=== PATIENT | male | born 1975 | race Caucasian/White ===

== ENCOUNTER → 2018-08-10 09:08 | Outpatient (CLI) | payer MEDICARE, MEDICAID, SELFPAY ==
[2018-08-10 09:59] LABS: Alanine Aminotransferase 33 IU/L (21-72); Albumin 4.6 g/dL (3.5-5.0); Albumin Globulin Ratio 1.7 (1.0-2.8); Alkaline Phosphatase 78 U/L (38-126); Aspartate Aminotransferase 22 IU/L (17-59); BUN Creatinine Ratio 16.3 (6-22); Bilirubin Total 0.6 mg/dL (0.2-1.3); Blood Urea Nitrogen 13 mg/dL (9-20); Calcium 9.6 mg/dL (8.4-10.2); Carbon Dioxide 33 mmol/L (22-32); Chloride 97 mmol/L (98-107); Estimated Glomerular Filt Rate > 60.0 mL/min (>60); Globulin 2.7 g/dL (1.7-4.1); Glucose 138 mg/dL (70-100); HEMOLYSIS < 15 (0-50); Potassium 4.5 mmol/L (3.4-5.1); Sodium 141 mmol/L (137-145); Total Protein 7.3 g/dL (6.3-8.2)
== END ==
PROVIDERS: PCP Internal Medicine; Visit Provider Internal Medicine
DX: E11.9 Type 2 diabetes mellitus without complications (principal); E78.00 Pure hypercholesterolemia, unspecified; R74.0 Nonspecific elevation of levels of transaminase and lactic acid dehydrogenase [LDH]
CPT/HCPCS: 36415; 80053; 83036

== ENCOUNTER → 2020-04-14 16:12 | Outpatient (CLI) | payer MEDICARE, MEDICAID, SELFPAY ==
[2020-04-14 17:41] LABS: Hemoglobin A1C% w Est Avg Glu 7.5 % (4.0-6.0)
== END ==
PROVIDERS: Family Provider Internal Medicine; PCP Internal Medicine; Referring Provider Internal Medicine; Visit Provider Internal Medicine
DX: E11.9 Type 2 diabetes mellitus without complications (principal)
CPT/HCPCS: 36415; 83036

== ENCOUNTER → 2020-11-17 14:41 | Outpatient (ROUT) | payer MEDICARE, MEDICAID, SELFPAY ==
[2020-11-17 15:31] LABS: Hemoglobin A1C% w Est Avg Glu 6.9 % (4.0-6.0)
== END ==
PROVIDERS: Family Provider Internal Medicine; PCP Internal Medicine; Visit Provider Internal Medicine
DX: E11.9 Type 2 diabetes mellitus without complications (principal)
CPT/HCPCS: 83036

== ENCOUNTER → 2022-01-17 11:58 | Outpatient (CLI) | payer MEDICARE, MEDICAID, SELFPAY ==
[2022-01-17 19:11] LABS: Add Manual Diff / Slide Review NO; Basophils Absolute Auto 0 /uL (0-100); Basophils Percent Auto 0.5 % (0-2); Eosinophils Absolute Auto 0 /uL (0-450); Eosinophils Percent Auto 0.4 % (2-4); Hematocrit 43.2 % (41-53); Hemoglobin 14.6 g/dL (13.5-17.5); Lymphocytes Absolute Auto 1100 /uL (1100-4500); Lymphocytes Percent Auto 21.7 % (25-40); Mean Corpuscular HGB Conc 33.7 % (30-36); Mean Corpuscular Hemoglobin 31.7 PG (26-34); Mean Corpuscular Volume 94.2 fL (80-100); Monocytes Absolute Auto 600 /uL (0-900); Monocytes Percent Auto 11.2 % (3-14); Neutrophils Absolute Auto 3300 /uL (1500-7000); Neutrophils Percent Auto 66.2 % (50-75); Platelet Count 233 X10^3/uL (150-400); Red Blood Cell Count 4.59 X10^6/uL (4.5-5.9); Red Cell Distribution Width 13.3 % (11.6-14.8)
[2022-01-17 19:37] LABS: Hemoglobin A1C% w Est Avg Glu 8.1 % (4.0-6.0)
[2022-01-17 19:38] LABS: Alanine Aminotransferase 38 IU/L (<50); Albumin 4.2 g/dL (3.5-5.0); Albumin Globulin Ratio 1.8 (1.0-2.8); Alkaline Phosphatase 124 U/L (38-126); Aspartate Aminotransferase 31 IU/L (17-59); BUN Creatinine Ratio 21.4 (6-22); Bilirubin Total 0.5 mg/dL (0.2-1.3); Blood Urea Nitrogen 15 mg/dL (9-20); Calcium 9.8 mg/dL (8.4-10.2); Carbon Dioxide 33 mmol/L (22-32); Chloride 97 mmol/L (98-107); Cholesterol 173 mg/dL (140-199); Estimated Glomerular Filt Rate > 60.0 mL/min (>60); Globulin 2.4 g/dL (1.7-4.1); Glucose 296 mg/dL (70-100); HDL Cholesterol 45 mg/dL (40-60); HEMOLYSIS 17 (0-50); LDL Cholesterol Calculated 93 mg/dL (<100); Potassium 4.5 mmol/L (3.4-5.1); Sodium 134 mmol/L (137-145); Total Protein 6.6 g/dL (6.3-8.2); Triglycerides 177 mg/dL (35-150)
== END ==
PROVIDERS: Family Provider Internal Medicine; PCP Family Medicine; Visit Provider Family Medicine
DX: E11.9 Type 2 diabetes mellitus without complications (principal)
CPT/HCPCS: 80053; 80061; 83036; 85025

== ENCOUNTER → 2022-05-25 11:39 | Outpatient (CLI) | payer MEDICARE, MEDICAID, SELFPAY ==
[2022-05-25 20:24] LABS: Add Manual Diff / Slide Review NO; Basophils Absolute Auto 0 /uL (0-100); Basophils Percent Auto 0.6 % (0-2); Eosinophils Absolute Auto 0 /uL (0-450); Eosinophils Percent Auto 0.4 % (2-4); Hematocrit 45.4 % (41-53); Hemoglobin 15.4 g/dL (13.5-17.5); Lymphocytes Absolute Auto 1000 /uL (1100-4500); Mean Corpuscular HGB Conc 33.9 % (30-36); Mean Corpuscular Hemoglobin 32.1 PG (26-34); Mean Corpuscular Volume 94.6 fL (80-100); Monocytes Absolute Auto 500 /uL (0-900); Monocytes Percent Auto 9.9 % (3-14); Neutrophils Absolute Auto 3300 /uL (1500-7000); Neutrophils Percent Auto 68.1 % (50-75); Platelet Count 205 X10^3/uL (150-400); Red Blood Cell Count 4.79 X10^6/uL (4.5-5.9); Red Cell Distribution Width 12.8 % (11.6-14.8); White Blood Cell Count 4.8 X10^3/uL (4.5-11.0)
[2022-05-25 20:28] LABS: Hemoglobin A1C% w Est Avg Glu 8.1 % (4.0-6.0)
[2022-05-25 20:35] LABS: Alanine Aminotransferase 44 IU/L (<50); Albumin 4.4 g/dL (3.5-5.0); Albumin Globulin Ratio 1.8 (1.0-2.8); Alkaline Phosphatase 103 U/L (38-126); Aspartate Aminotransferase 34 IU/L (17-59); BUN Creatinine Ratio 14.5 (6-22); Bilirubin Total 0.9 mg/dL (0.2-1.3); Blood Urea Nitrogen 10 mg/dL (9-20); Calcium 9.3 mg/dL (8.4-10.2); Carbon Dioxide 29 mmol/L (22-32); Chloride 97 mmol/L (98-107); Cholesterol 165 mg/dL (140-199); Estimated Glomerular Filt Rate > 60 mL/min (>60); Globulin 2.5 g/dL (1.7-4.1); Glucose 139 mg/dL (70-100); HDL Cholesterol 51 mg/dL (40-60); HEMOLYSIS < 15 (0-50); LDL Cholesterol Calculated 101 mg/dL (<100); Sodium 135 mmol/L (137-145); Total Protein 6.9 g/dL (6.3-8.2); Triglycerides 65 mg/dL (35-150)
== END ==
PROVIDERS: Family Provider Internal Medicine; PCP Family Medicine; Visit Provider Family Medicine
DX: E11.9 Type 2 diabetes mellitus without complications (principal); E78.5 Hyperlipidemia, unspecified; F20.9 Schizophrenia, unspecified
CPT/HCPCS: 80053; 80061; 83036; 85025

== ENCOUNTER → 2022-10-06 12:42 | Outpatient (CLI) | payer MEDICARE, MEDICAID, SELFPAY ==
[2022-10-06 19:15] LABS: Hemoglobin A1C% w Est Avg Glu 8.8 % (4.0-6.0)
== END ==
PROVIDERS: Family Provider Internal Medicine; PCP Family Medicine; Visit Provider Family Medicine
DX: E11.9 Type 2 diabetes mellitus without complications (principal)
CPT/HCPCS: 83036

== ENCOUNTER → 2022-12-29 11:48 | Outpatient (CLI) | payer MEDICARE, MEDICAID, SELFPAY ==
[2022-12-29 20:15] LABS: Hemoglobin A1C% w Est Avg Glu 8.8 % (4.0-6.0)
[2022-12-29 20:17] LABS: BUN Creatinine Ratio 25.8 (6-22); Blood Urea Nitrogen 16 mg/dL (9-20); Calcium 9.4 mg/dL (8.4-10.2); Carbon Dioxide 26 mmol/L (22-32); Chloride 94 mmol/L (98-107); Cholesterol 170 mg/dL (140-199); Estimated Glomerular Filt Rate > 60 mL/min (>60); Glucose 141 mg/dL (70-100); HDL Cholesterol 51 mg/dL (40-60); HEMOLYSIS < 15 (0-50); LDL Cholesterol Calculated 95 mg/dL (<100); Sodium 135 mmol/L (137-145); Triglycerides 119 mg/dL (35-150)
[2022-12-29 21:01] LABS: Microalbumin Urine Random < 0.6 mg/dL (0-1.6); Vitamin B12 > 1000 pg/mL (239-931)
[2022-12-29 21:02] LABS: Creatinine Urine Random 8.1 mg/dL
== END ==
PROVIDERS: Family Provider Internal Medicine; PCP Family Medicine; Visit Provider Family Medicine
DX: E11.9 Type 2 diabetes mellitus without complications (principal); E78.5 Hyperlipidemia, unspecified; F20.9 Schizophrenia, unspecified; M06.9 Rheumatoid arthritis, unspecified
CPT/HCPCS: 80048; 80061; 82043; 82570; 82607; 83036

== ENCOUNTER → 2023-05-02 08:58 | Outpatient (CLI) | payer MEDICARE, MEDICAID, SELFPAY ==
[2023-05-02 20:09] LABS: BUN Creatinine Ratio 17.9 (6-22); Blood Urea Nitrogen 12 mg/dL (9-20); Calcium 9.2 mg/dL (8.4-10.2); Carbon Dioxide 31 mmol/L (22-32); Chloride 92 mmol/L (98-107); Cholesterol 156 mg/dL (140-199); Estimated Glomerular Filt Rate > 60 mL/min (>60); Glucose 184 mg/dL (70-100); HDL Cholesterol 56 mg/dL (40-60); HEMOLYSIS 18 (0-50); LDL Cholesterol Calculated 78 mg/dL (<100); Potassium 3.8 mmol/L (3.4-5.1); Sodium 131 mmol/L (137-145); Triglycerides 110 mg/dL (35-150)
[2023-05-04 00:07] LABS: x Labcorp Estim. Avg Glu (eAG) 206 mg/dL (.); x Labcorp Hemoglobin A1c 8.8 % (4.8-5.6)
== END ==
PROVIDERS: Family Provider Internal Medicine; PCP Family Medicine; Visit Provider Family Medicine
DX: E78.5 Hyperlipidemia, unspecified; E11.9 Type 2 diabetes mellitus without complications; E87.1 Hypo-osmolality and hyponatremia; G62.9 Polyneuropathy, unspecified; F20.9 Schizophrenia, unspecified
CPT/HCPCS: 80048; 80061; 83036

== ENCOUNTER → 2023-08-17 13:14 | Outpatient (CLI) | payer MEDICARE, MEDICAID, SELFPAY ==
[2023-08-17 19:53] LABS: BUN Creatinine Ratio 14.1 (6-22); Blood Urea Nitrogen 10 mg/dL (9-20); Estimated Glomerular Filt Rate > 60 mL/min (>60)
[2023-08-17 19:54] LABS: Hemoglobin A1C% w Est Avg Glu 9.7 % (4.0-6.0)
== END ==
PROVIDERS: Family Provider Internal Medicine; PCP Family Medicine; Visit Provider Family Medicine
DX: E11.9 Type 2 diabetes mellitus without complications (principal); E87.1 Hypo-osmolality and hyponatremia; E78.5 Hyperlipidemia, unspecified
CPT/HCPCS: 82565; 83036; 84520

== ENCOUNTER → 2023-12-11 09:50 | Outpatient (CLI) | payer MEDICARE, MEDICAID, SELFPAY ==
[2023-12-11 19:38] LABS: Hemoglobin A1C% w Est Avg Glu 8.3 % (4.0-6.0)
[2023-12-11 19:46] LABS: BUN Creatinine Ratio 15.9 (6-22); Blood Urea Nitrogen 11 mg/dL (9-20); Calcium 9.6 mg/dL (8.4-10.2); Carbon Dioxide 33 mmol/L (22-32); Chloride 92 mmol/L (98-107); Estimated Glomerular Filt Rate > 60 mL/min (>60); Glucose 107 mg/dL (70-100); HEMOLYSIS 17 (0-50); Potassium 3.7 mmol/L (3.4-5.1); Sodium 133 mmol/L (137-145)
== END ==
PROVIDERS: Family Provider Internal Medicine; PCP Family Medicine; Visit Provider Family Medicine
DX: E11.9 Type 2 diabetes mellitus without complications (principal); E87.1 Hypo-osmolality and hyponatremia
CPT/HCPCS: 80048; 83036

== ENCOUNTER → 2024-04-08 08:51 | Outpatient (CLI) | payer MEDICARE, MEDICAID, SELFPAY ==
[2024-04-08 20:20] LABS: Add Manual Diff / Slide Review NO; Basophils Absolute Auto 100 /uL (0-100); Basophils Percent Auto 0.9 % (0-2); Eosinophils Absolute Auto 100 /uL (0-450); Eosinophils Percent Auto 1.9 % (2-4); Hematocrit 46.2 % (41-53); Hemoglobin 15.5 g/dL (13.5-17.5); Lymphocytes Absolute Auto 1300 /uL (1100-4500); Lymphocytes Percent Auto 23.1 % (25-40); Mean Corpuscular HGB Conc 33.6 % (30-36); Mean Corpuscular Hemoglobin 31.8 PG (26-34); Mean Corpuscular Volume 94.7 fL (80-100); Monocytes Absolute Auto 600 /uL (0-900); Monocytes Percent Auto 10.5 % (3-14); Neutrophils Absolute Auto 3600 /uL (1500-7000); Neutrophils Percent Auto 63.6 % (50-75); Platelet Count 214 X10^3/uL (150-400); Red Blood Cell Count 4.88 X10^6/uL (4.5-5.9); Red Cell Distribution Width 12.3 % (11.6-14.8); White Blood Cell Count 5.7 X10^3/uL (4.5-11.0)
[2024-04-08 20:21] LABS: Alanine Aminotransferase 70 IU/L (<50); Albumin Globulin Ratio 1.8 (1.0-2.8); Alkaline Phosphatase 106 U/L (38-126); Aspartate Aminotransferase 60 IU/L (17-59); BUN Creatinine Ratio 22.1 (6-22); Bilirubin Total 0.7 mg/dL (0.2-1.3); Blood Urea Nitrogen 15 mg/dL (9-20); Calcium 8.6 mg/dL (8.4-10.2); Carbon Dioxide 27 mmol/L (22-32); Chloride 101 mmol/L (98-107); Cholesterol 115 mg/dL (140-199); Estimated Glomerular Filt Rate > 60 mL/min (>60); Globulin 2.2 g/dL (1.7-4.1); Glucose 116 mg/dL (70-100); HDL Cholesterol 37 mg/dL (40-60); HEMOLYSIS 25 (0-50); LDL Cholesterol Calculated 56 mg/dL (<100); Potassium 3.5 mmol/L (3.4-5.1); Sodium 135 mmol/L (137-145); Total Protein 6.2 g/dL (6.3-8.2); Triglycerides 109 mg/dL (35-150)
[2024-04-08 20:53] LABS: Hemoglobin A1C% w Est Avg Glu 11.3 % (4.0-6.0)
[2024-04-08 20:56] LABS: Creatinine Urine Random 76.4 mg/dL
[2024-04-08 20:59] LABS: Microalbumin Urine Random < 0.6 mg/dL (0-1.6)
== END ==
PROVIDERS: Family Provider Internal Medicine; PCP Family Medicine; Visit Provider Family Medicine
DX: E11.9 Type 2 diabetes mellitus without complications (principal)
CPT/HCPCS: 80053; 80061; 82043; 82570; 83036; 85025

== ENCOUNTER → 2024-05-31 12:08 | Outpatient (CLI) | payer MEDICARE, MEDICAID, SELFPAY ==
--- NOTE | 2024-05-31 17:18 | DIAB.MNT ---
Initial Diabetes Medical Nutrition Therapy Assessment Name: Jermaine Palencia Date: 05/31/24 Time: 1-210p Dx: Type I Diabetes Provider: Trino Ramsay Learning Style: Reading/Seeing/Listening/Doing Jermaine presents for initial DM visit. Diagnosed in 2008. Just started insulin. Was on Metformin prior to that. Stomach never felt well on Metformin, often constipated, bloated. Does endorse h/o labs to confirm T1DM years ago, but did not need insulin at that time, MENA? If so, questioning need for Jardiance. States he will reach out to PCP office to ask. Took a group class in 2009 for DM. Follows a gluten free and close to vegan diet. Takes supplements. Does endorse taking iron and B vitamins. Has h/o elevated some type of B vitamin from sublingual vitamin, suspect B12. So does not take a sublingual, just B Complex vitamin. Reports blurry vision. I have coating on my eye from blood sugars. Denies cataracts. Sees eye doctor. Has DM retinopathy. Endorses infrequent neuropathy in LE. Does a sliding scale for Lantus HS instead of following FBG for changes, basis Lantus off of HS number. Follow SSI for Humalog. Endorses elevated BG after breakfast when FBG is in goal and no ac insulin is taken. Likely needs I:C ratio and correction. sometimes takes meal time insulin postprandial. Interested in CHO counting. He thinks he eats too much. States DM is very stressful. Anthropometrics: Ht: 5'10.5 Wt: 158# 04/2024 Physical Activity: Walk 2-3 x per day 3 mi. Walking, biking, basketball. Self-Monitoring Blood Glucose: No recent low BG per report. Does report a few 70 BG here and there. One time 66 mg/dl, technically low. States he did not feel shaky. Checks FB-100mg/dl Has checked after eating a few times, checks after work after snackin-230mg/dl. Thinks stress may be impacting BG. Most of stress is from trying to manage eating. Finds DM to be very stressful. Not sure how much he can eat. Brought FSL3 today, but cannot download theron without his home computer. So, we could not start his CGM today. Wants to use phone vs barrel reamer. Diabetes Medications: 25mg Jardiance 4 Glargine SSI Humalog Pertinent Labs: HgA1c: 9.7% 08/2023 8.3% 12/2023 11.3% 04/2024 Past Medical History: (Last Updated 04/18/24 @ 12:34 by Venkat Jameson MD) Carpal tunnel syndrome (~2014) Chicken pox (~1981) Schizophrenia (~2002) Nutrition Rx: Carbohydrates: Meal:30-60g Snack:15-30g Nutrition Diagnosis: - Food and nutrition related knowledge deficit r/t no previous MNT aeb needing education on carb counting and I:C - Inconsistent energy intake r/t work day skipping lunch aeb diet recall Intervention: This participant was very receptive. Provided appropriate educational handouts. Discussed the following topics: Completed intake assessment. Discussed barriers to care. Pathophysiology of T1DM in brief HgA1c, its correlation to blood glucose numbers, and rationale for goal Importance of self-monitoring, how often, and when to check. Suggested checking at different times to evaluate meals Plate Method, impact of macronutrients on blood sugar, meal timing, carbohydrate counting, carb counting resources Recommended servings for carbohydrates at meals and snacks I:C and correction for preventing hyperglycemia postprandially Rule of 15 for low tx CGM function, alerts, and theron download Created SMART goals for patient self-care and success. Goals: Use carb counting resources- new Trial 1:15 I:C with 1:50 correction- new Take insulin 15 min ac- new Follow-up: [facility] follow-up in 3 weeks. Would like face to face at this time, but plans to use virtual in the future. Abby Clayton RDN, [facility] Certified Diabetes Care and Entry Level Software Developer P: [phone] Thank you for this referral
== END ==
PROVIDERS: Family Provider Internal Medicine; PCP Family Medicine; Referring Provider Family Medicine
DX: E10.9 Type 1 diabetes mellitus without complications (principal); Z71.3 Dietary counseling and surveillance
CPT/HCPCS: 97802

== ENCOUNTER → 2024-06-21 12:39 | Outpatient (CLI) | payer MEDICARE, MEDICAID, SELFPAY ==
--- NOTE | 2024-08-07 17:07 | DIAB.FU ---
Follow-up Diabetes Education Assessment Name: Jermaine Palencia Date: 06/21/24 Time: 1-2p Dx: Type I Diabetes Provider: Trino Dean presents for DM visit. Diagnosed in 2008. Using FSL3 with success with good time in range. Has questions about placement of CGM. Repors soem lows around 6am of 54-69mg/dl without symptoms, true low vs compression low? Also endorses some elevations after breakfast. Paying out of pocket for SMBG strips. Trying to be more active to help manage BG. Reports h/o toe fungus and athletes foot. Has questions regarding supplements for reducing BG. Anthropometrics: Ht: 5'10.5 Wt: 158# 04/2024 Physical Activity: Walk 2-3 x per day 3 mi. Walking, biking, basketball. Self-Monitoring Blood Glucose: Overall very good time in range with >70% 70-180mg/dl. TIR: 1% very high 19% high 80% in range 0% low 0% very low av GMI: 6.9% variability: 25.9% Diabetes Medications: 25mg Jardiance 4u Glargine 4-5u Humalog Pertinent Labs: HgA1c: 9.7% 08/2023 8.3% 12/2023 11.3% 04/2024 Past Medical History: (Last Updated 04/18/24 @ 12:34 by Venkat Jameson MD) Carpal tunnel syndrome (~2014) Chicken pox (~1981) Schizophrenia (~2002) Intervention: This participant was very receptive. Provided appropriate educational handouts. Discussed the following topics: Placement of CGM and switching sites Double checking lows and education around true v compression lows at night Medication management: potential for adjusting insulin. SGLT2i indications. Checking feet and reducing DM complications Troubleshooting cost of SMBG products Created SMART goals for patient self-care and success. Goals: Use carb counting resources- met Trial 1:15 I:C with 1:50 correction- met Take insulin 15 min ac- met Switch arms for CGM- new Double check lows if no symptoms- new Try 5u at breakfast- new Check feet daily- new Check pharmacy for meter strips- new Follow-up: RDN [facility] follow-up in 3 months per pt request. Overall, BG seem well managed and Jermaine endorses confidence in managing insulin regimen at this time. RD will reach out about SGLT2i in T1 rx. Abby Clayton RDN, [facility] Certified Diabetes Care and Litigation Services Manager P: [phone] Thank you for this referral
== END ==
PROVIDERS: Family Provider Internal Medicine; PCP Family Medicine; Referring Provider Family Medicine
DX: E10.9 Type 1 diabetes mellitus without complications (principal); Z71.3 Dietary counseling and surveillance
CPT/HCPCS: G0108

== ENCOUNTER → 2024-08-19 12:59 | Outpatient (CLI) | payer MEDICARE, MEDICAID, SELFPAY ==
[2024-08-19 19:46] LABS: Hemoglobin A1C% w Est Avg Glu 6.5 % (4.0-6.0)
[2024-08-19 19:47] LABS: Alanine Aminotransferase 54 IU/L (<50); Albumin Globulin Ratio 1.5 (1.0-2.8); Alkaline Phosphatase 122 U/L (38-126); Aspartate Aminotransferase 46 IU/L (17-59); BUN Creatinine Ratio 25.4 (6-22); Bilirubin Total 0.8 mg/dL (0.2-1.3); Bilirubin Unconjugated 0.6 mg/dL (0.0-1.1); Blood Urea Nitrogen 18 mg/dL (9-20); Calcium 9.9 mg/dL (8.4-10.2); Carbon Dioxide 31 mmol/L (22-32); Chloride 95 mmol/L (98-107); Estimated Glomerular Filt Rate > 60 mL/min (>60); Globulin 2.7 g/dL (1.7-4.1); Glucose 121 mg/dL (70-100); HEMOLYSIS 30 (0-50); Potassium 4.1 mmol/L (3.4-5.1); Sodium 132 mmol/L (137-145); Total Protein 6.7 g/dL (6.3-8.2)
[2024-08-19 20:20] LABS: Ferritin 34 ng/mL (18-464)
[2024-08-19 20:22] LABS: Hepatitis B Surface Antigen NEGATIVE s/c (NEGATIVE)
[2024-08-19 20:32] LABS: HIV 1 & 2 Ab/Ag 4th Gen Combo NEGATIVE (NEGATIVE); Hep C Virus Ab w/Reflex Quant NEGATIVE s/c (NEGATIVE)
== END ==
PROVIDERS: Family Provider Internal Medicine; PCP Family Medicine; Visit Provider Family Medicine
DX: E10.9 Type 1 diabetes mellitus without complications (principal); R79.89 Other specified abnormal findings of blood chemistry; E87.1 Hypo-osmolality and hyponatremia; G62.9 Polyneuropathy, unspecified; F20.9 Schizophrenia, unspecified; E78.5 Hyperlipidemia, unspecified
CPT/HCPCS: 80048; 80076; 82525; 82728; 83036; 86803; 87340; 87389

== ENCOUNTER → 2024-08-23 12:05 | Outpatient (CLI) | payer MEDICARE, MEDICAID, SELFPAY ==
--- NOTE | 2024-09-18 13:45 | DIAB.FU ---
Follow-up Diabetes Education Assessment Name: Jermaine Palencia Date: 08/23/24 Time: 1-130p Dx: Type I Diabetes Jermaine presents for DM visit. Diagnosed in 2008. Paying $252/3months for FSL. So insurance seems to be paying for some. Cannot use coupons based on [facility] insurance. Has had corn removed from foot. Checks feet daily. Now getting SMBG strips from pharmacy. Noticing elevations with fast eating. Thinks BG is better if he waits to eat for 20 mins after insulin, which makes sense. Wears DM ID necklace. UTD with dental and eye exams. Still taking Jardiance, which can increase risk for DKA in individuals with T1DM. he is not familiar with DKA per report. Anthropometrics: Ht: 5'10.5 Wt: 170# 07/2024 158# 04/2024 Physical Activity: Walk 2-3 x per day 3 mi. Walking, biking, basketball. Self-Monitoring Blood Glucose: Good time in range with >70% 70-180mg/dl. Today TIR: 0% very high 12% high 88% in range 0% low 0% very low av GMI: 6.6% variability: 23.1% Last Visit TIR: 1% very high 19% high 80% in range 0% low 0% very low av GMI: 6.9% variability: 25.9% Diabetes Medications: 25mg Jardiance 4u Glargine 4-6u Humalog Pertinent Labs: HgA1c: 9.7% 08/2023 8.3% 12/2023 11.3% 04/2024 6.5% 08/2024 Past Medical History: (Last Updated 04/18/24 @ 12:34 by Venkat Jameson MD) Carpal tunnel syndrome (~2014) Chicken pox (~1981) Schizophrenia (~2002) Intervention: This participant was very receptive. Provided appropriate educational handouts. Discussed the following topics: Review of BG trends and goals Brief discussion of DM medications DKA: what is it? what may cause it? Signs/symptoms and what to do Insulin pump options and pros/cons-- would like to continue with MDI at this time Created SMART goals for patient self-care and success. Goals: Switch arms for CGM- met Double check lows if no symptoms- met Try 5u at breakfast- met Check feet daily- met Check pharmacy for meter strips- met [facility] prn. RD did reach out to provider about SGLT2i and DKA risk in T1, however provider conveyed that SGLT2i may be helping BG management. Pt has been educated about DKA risks. Will defer to provider for further management. Overall, Dm management going well. Encouraged pt to call or message for follow-up prn, he agreed. Abby Clayton RDN, [facility] Certified Diabetes Care and Horse Stud Worker P: [phone] Thank you for this referral
== END ==
PROVIDERS: Family Provider Internal Medicine; PCP Family Medicine; Referring Provider Family Medicine
DX: E10.9 Type 1 diabetes mellitus without complications (principal); Z71.3 Dietary counseling and surveillance; R79.89 Other specified abnormal findings of blood chemistry; E87.1 Hypo-osmolality and hyponatremia
CPT/HCPCS: G0108

== ENCOUNTER → 2025-01-02 09:31 | Outpatient (CLI) | payer MEDICARE, MEDICAID, SELFPAY ==
[2025-01-02 20:51] LABS: Add Manual Diff / Slide Review NO; Basophils Absolute Auto 0 /uL (0-100); Eosinophils Absolute Auto 100 /uL (0-450); Eosinophils Percent Auto 1.1 % (2-4); Hematocrit 46.5 % (41-53); Hemoglobin 15.6 g/dL (13.5-17.5); Lymphocytes Absolute Auto 1000 /uL (1100-4500); Lymphocytes Percent Auto 21.3 % (25-40); Mean Corpuscular HGB Conc 33.4 % (30-36); Mean Corpuscular Hemoglobin 32.2 PG (26-34); Mean Corpuscular Volume 96.3 fL (80-100); Monocytes Absolute Auto 500 /uL (0-900); Monocytes Percent Auto 10.5 % (3-14); Neutrophils Absolute Auto 3100 /uL (1500-7000); Neutrophils Percent Auto 66.1 % (50-75); Platelet Count 222 X10^3/uL (150-400); Red Blood Cell Count 4.83 X10^6/uL (4.5-5.9); White Blood Cell Count 4.7 X10^3/uL (4.5-11.0)
[2025-01-02 21:10] LABS: Alanine Aminotransferase 74 IU/L (<50); Albumin 4.3 g/dL (3.5-5.0); Alkaline Phosphatase 89 U/L (38-126); Aspartate Aminotransferase 52 IU/L (17-59); BUN Creatinine Ratio 24.4 (6-22); Bilirubin Total 0.6 mg/dL (0.2-1.3); Blood Urea Nitrogen 19 mg/dL (9-20); Calcium 9.5 mg/dL (8.4-10.2); Carbon Dioxide 30 mmol/L (22-32); Chloride 95 mmol/L (98-107); Estimated Glomerular Filt Rate > 60 mL/min (>60); Globulin 2.2 g/dL (1.7-4.1); Glucose 134 mg/dL (70-100); HEMOLYSIS 16 (0-50); Potassium 4.4 mmol/L (3.4-5.1); Sodium 133 mmol/L (137-145); Total Protein 6.5 g/dL (6.3-8.2)
[2025-01-02 21:36] LABS: Creatinine Urine Random 10.25 mg/dL
[2025-01-02 21:45] LABS: Microalbumin Urine Random < 0.6 mg/dL (0-1.6)
== END ==
PROVIDERS: Family Provider Internal Medicine; PCP Family Medicine; Visit Provider Family Medicine
DX: R79.89 Other specified abnormal findings of blood chemistry (principal); E10.9 Type 1 diabetes mellitus without complications; E87.1 Hypo-osmolality and hyponatremia; E78.5 Hyperlipidemia, unspecified
CPT/HCPCS: 80053; 82043; 82570; 83036; 85025

== ENCOUNTER → 2025-03-05 10:47 | Outpatient (CLI) | payer MEDICARE, MEDICAID, SELFPAY ==
[2025-03-05 19:26] LABS: C-Reactive Protein Quant < 0.5 mg/dL (<1.0)
[2025-03-05 19:53] LABS: Erythrocyte Sedimentation Rate 2 MM/HR (0-15)
[2025-03-12 13:10] LABS: ANA Screen, IFA Negative (.)
== END ==
PROVIDERS: Family Provider Internal Medicine; PCP Family Medicine; Visit Provider Family Medicine
DX: R10.9 Unspecified abdominal pain (principal); G89.29 Other chronic pain; R07.89 Other chest pain
CPT/HCPCS: 85651; 86038; 86140

== ENCOUNTER → 2025-07-17 09:20 | Outpatient (CLI) | payer MEDICARE, MEDICAID, SELFPAY ==
[2025-07-17 19:36] LABS: Add Manual Diff / Slide Review NO; Hematocrit 47.7 % (41-53); Hemoglobin 16.1 g/dL (13.5-17.5); Lymphocytes Absolute Auto 1200 /uL (1100-4500); Mean Corpuscular HGB Conc 33.7 % (30-36); Mean Corpuscular Hemoglobin 32.4 PG (26-34); Mean Corpuscular Volume 95.9 fL (80-100); Platelet Count 224 X10^3/uL (150-400)
[2025-07-17 19:40] LABS: Alanine Aminotransferase 61 IU/L (<50); Albumin 4.5 g/dL (3.5-5.0); Albumin Globulin Ratio 2.0 (1.0-2.8); Alkaline Phosphatase 98 U/L (38-126); Blood Urea Nitrogen 19 mg/dL (9-20); Calcium 9.3 mg/dL (8.4-10.2); Carbon Dioxide 28 mmol/L (22-32); Chloride 99 mmol/L (98-107); Cholesterol 173 mg/dL (140-199); Estimated Glomerular Filt Rate > 60 mL/min (>60); Globulin 2.3 g/dL (1.7-4.1); Glucose 151 mg/dL (70-99); HDL Cholesterol 40 mg/dL (40-60); HEMOLYSIS 27 (0-50); Potassium 4.4 mmol/L (3.4-5.1); Sodium 136 mmol/L (137-145); Total Protein 6.8 g/dL (6.3-8.2); Triglycerides 106 mg/dL (35-150)
[2025-07-17 20:12] LABS: TSH w/ Reflex to FT4 1.90 uIU/mL (0.47-4.68)
[2025-07-18 08:05] LABS: Hemoglobin A1C% w Est Avg Glu 6.3 % (4.0-6.0)
== END ==
PROVIDERS: PCP Family Medicine; Visit Provider Family Medicine
DX: R79.89 Other specified abnormal findings of blood chemistry (principal); Z12.5 Encounter for screening for malignant neoplasm of prostate; E78.5 Hyperlipidemia, unspecified; E87.1 Hypo-osmolality and hyponatremia; F20.9 Schizophrenia, unspecified
CPT/HCPCS: 80053; 80061; 82043; 82570; 83036; 84443; 85025; G0103